=== PATIENT | female | born 1985 | race Caucasian/White ===

== ENCOUNTER 2020-12-12 12:28 | Emergency (ER) | payer OTHER ==
[2020-12-12] MEDS ORDERED: Boostrix 0.5 ML (Tdap) VIAL ONE (12:59)
== END 2020-12-12 13:24 | disposition home or self-care (01) ==
LOC: BURERS 12:28
DX: S81.011A Laceration without foreign body, right knee, initial encounter (principal); W19.XXXA Unspecified fall, initial encounter
CPT/HCPCS: 12001; 90471; 90715